=== PATIENT | female | born 1945 | race Caucasian/White ===

== ENCOUNTER → 2023-08-18 10:10 | Outpatient (BNVA) | payer MEDICARE, OTHER, SELFPAY | PROVIDERS: PCP Family Medicine; Referring Provider Nurse Practitioner; Visit Provider Internal Medicine | DX: E04.1 Nontoxic single thyroid nodule (principal); E04.2 Nontoxic multinodular goiter; R94.6 Abnormal results of thyroid function studies; C73 Malignant neoplasm of thyroid gland | CPT/HCPCS: 36415; 84439; 84443; 84480; 99204 ==

== ENCOUNTER → 2023-09-10 11:58 | Outpatient (BNVA) | payer MEDICARE, BC, SELFPAY | PROVIDERS: PCP Family Medicine; Visit Provider Internal Medicine | DX: E04.1 Nontoxic single thyroid nodule (principal); R94.6 Abnormal results of thyroid function studies; E04.2 Nontoxic multinodular goiter; C73 Malignant neoplasm of thyroid gland; M81.0 Age-related osteoporosis without current pathological fracture; Z79.890 Hormone replacement therapy | CPT/HCPCS: 36415; 84439; 99214 ==

== ENCOUNTER → 2023-12-01 11:49 | Outpatient (BNVA) | payer MEDICARE, OTHER, SELFPAY | PROVIDERS: PCP Family Medicine; Visit Provider Internal Medicine | DX: E04.1 Nontoxic single thyroid nodule (principal); R94.6 Abnormal results of thyroid function studies; E04.2 Nontoxic multinodular goiter; C73 Malignant neoplasm of thyroid gland; M81.0 Age-related osteoporosis without current pathological fracture | CPT/HCPCS: 36415; 82306; 82310; 83735; 83970; 84439; 84443 ==

== ENCOUNTER → 2024-01-26 09:37 | Outpatient (BNVA) | payer MEDICARE, OTHER, SELFPAY | PROVIDERS: PCP Family Medicine; Visit Provider Internal Medicine | DX: R94.6 Abnormal results of thyroid function studies (principal); C73 Malignant neoplasm of thyroid gland; E04.1 Nontoxic single thyroid nodule; E11.9 Type 2 diabetes mellitus without complications; E04.2 Nontoxic multinodular goiter; M81.0 Age-related osteoporosis without current pathological fracture; E23.6 Other disorders of pituitary gland; E03.9 Hypothyroidism, unspecified; Z79.890 Hormone replacement therapy | CPT/HCPCS: 36415; 82310; 83970; 84439; 84443; 84480; 99214 ==

== ENCOUNTER 2024-03-03 09:11 | Outpatient (CLI) | payer MEDICARE, OTHER, SELFPAY ==
[2024-03-03 10:10] LABS: Alanine Aminotransferase 13 U/L (0-33); Albumin Level 4.1 g/dL (3.5-5.2); Alkaline Phosphatase 59 U/L (35-105); Anion Gap 12.9 (5-19); Aspartate Amino Transferase 18 U/L (0-32); Blood Urea Nitrogen 18 mg/dL (8-23); Calcium 8.8 mg/dL (8.5-10.5); Carbon Dioxide 27 mmol/L (22-29); Chloride 98 mmol/L (98-107); Chol HDL Ratio 2.19 mg/dL (0.0-4.40); Cholesterol 140 mg/dL (0-200); Cortisol Random 9.33 ug/dL (2.47-19.5); Free T4 Free Thyroxine 1.74 ng/dL (0.82-1.77); Globulin 3.2 g/dL (1.3-4.6); Glucose 83 mg/dL (65-115); HDL Cholesterol 64 mg/dL (60-100); LDL Cholesterol Calculated 61 mg/dL (50-129); LDL HDL Ratio 0.95 RATIO (0.00-3.22); Osmolality Calculated 279 mOsm/kg (285-295); Potassium 3.9 mmol/L (3.5-5.1); Sodium 134 mmol/L (136-145); Thyroid Stimulating Hormone 3.41 uIU/mL (0.27-4.20); Total Bilirubin 0.4 mg/dL (0.15-1.2); Total Protein 7.3 g/dL (6.6-8.7); Triglycerides 73 mg/dL (0-150)
[2024-03-03 10:17] LABS: Estmated Average Glucose 120; Hemoglobin A1C 5.8 % (4.0-6.0)
[2024-03-03 10:29] LABS: Creatinine Urine, Random 21 mg/dL (28-217); Microalbumin Random Urine 1 ug/dL (0-20)
[2024-03-03 10:30] LABS: Microalbum Creatinine Ratio Ur 48 mg/dL (0-20)
[2024-03-14 14:00] LABS: IGF1 LC/MS 103 ng/mL (34-246)
== END 2024-03-03 09:12 | disposition home or self-care (01) ==
LOC: LAB 09:13
PROVIDERS: PCP Family Medicine; Visit Provider Internal Medicine
DX: E04.1 Nontoxic single thyroid nodule (principal); C73 Malignant neoplasm of thyroid gland; E11.9 Type 2 diabetes mellitus without complications; E04.2 Nontoxic multinodular goiter; E03.9 Hypothyroidism, unspecified; M81.0 Age-related osteoporosis without current pathological fracture; E23.6 Other disorders of pituitary gland; Z79.890 Hormone replacement therapy
CPT/HCPCS: 36415; 80053; 80061; 82044; 82533; 83036; 84305; 84439; 84443; 99214

== ENCOUNTER 2024-05-24 08:33 | Outpatient (CLI) | payer MEDICARE, OTHER, SELFPAY ==
[2024-05-24 09:32] LABS: Alanine Aminotransferase 16 U/L (0-33); Albumin Level 4.1 g/dL (3.5-5.2); Alkaline Phosphatase 58 U/L (35-105); Aspartate Amino Transferase 20 U/L (0-32); Chol HDL Ratio 2.22 mg/dL (0.0-4.40); Cholesterol 140 mg/dL (0-200); Globulin 3.2 g/dL (1.3-4.6); HDL Cholesterol 63 mg/dL (60-100); LDL Cholesterol Calculated 57 mg/dL (50-129); Total Bilirubin 0.3 mg/dL (0.15-1.2); Total Protein 7.3 g/dL (6.6-8.7); Triglycerides 98 mg/dL (0-150)
[2024-05-24 09:37] LABS: Free T4 Free Thyroxine 1.98 ng/dL (0.82-1.77); Thyroid Stimulating Hormone 1.56 uIU/mL (0.27-4.20)
[2024-05-26 09:14] LABS: Thyroglobulin AB <1 IU/mL (< or = 1)
== END 2024-05-24 08:34 | disposition home or self-care (01) ==
LOC: LAB 08:34
PROVIDERS: PCP Family Medicine; Visit Provider Internal Medicine
DX: E03.9 Hypothyroidism, unspecified (principal); E04.2 Nontoxic multinodular goiter; C73 Malignant neoplasm of thyroid gland
CPT/HCPCS: 36415; 80061; 80076; 84432; 84439; 84443; 86800

== ENCOUNTER 2024-11-23 08:49 | Outpatient (CLI) | payer MEDICARE, OTHER, SELFPAY ==
[2024-11-23 09:56] LABS: Alanine Aminotransferase 14 U/L (0-33); Albumin Level 4.3 g/dL (3.5-5.2); Alkaline Phosphatase 56 U/L (35-105); Anion Gap 13.8 (5-19); Aspartate Amino Transferase 19 U/L (0-32); Blood Urea Nitrogen 20 mg/dL (8-23); Calcium 9.2 mg/dL (8.5-10.5); Carbon Dioxide 28 mmol/L (22-29); Chloride 97 mmol/L (98-107); Chol HDL Ratio 2.28 mg/dL (0.0-4.40); Cholesterol 155 mg/dL (0-200); Globulin 3.1 g/dL (1.3-4.6); Glucose 72 mg/dL (65-115); HDL Cholesterol 68 mg/dL (60-100); LDL Cholesterol Calculated 72 mg/dL (50-129); LDL HDL Ratio 1.06 RATIO (0.00-3.22); Osmolality Calculated 281 mOsm/kg (285-295); Potassium 3.8 mmol/L (3.5-5.1); Sodium 135 mmol/L (136-145); Thyroid Stimulating Hormone 10.28 uIU/mL (0.27-4.20); Total Bilirubin 0.4 mg/dL (0.15-1.2); Total Protein 7.4 g/dL (6.6-8.7); Triglycerides 75 mg/dL (0-150)
== END 2024-11-23 08:50 | disposition home or self-care (01) ==
LOC: LAB 08:53
PROVIDERS: PCP Family Medicine; Visit Provider Internal Medicine
DX: E04.2 Nontoxic multinodular goiter (principal); C73 Malignant neoplasm of thyroid gland; E03.9 Hypothyroidism, unspecified
CPT/HCPCS: 36415; 80053; 80061; 84432; 84443; 86800

== ENCOUNTER → 2025-03-23 10:41 | Outpatient (BNVA) | payer MEDICARE, OTHER, SELFPAY | PROVIDERS: PCP Family Medicine; Visit Provider Internal Medicine | DX: E03.9 Hypothyroidism, unspecified (principal); E04.2 Nontoxic multinodular goiter; E23.6 Other disorders of pituitary gland; E78.2 Mixed hyperlipidemia; C73 Malignant neoplasm of thyroid gland | CPT/HCPCS: 99214 ==

== ENCOUNTER → 2025-07-26 10:44 | Outpatient (BNVA) | payer MEDICARE, OTHER, SELFPAY | PROVIDERS: PCP Family Medicine; Visit Provider Internal Medicine | DX: E04.2 Nontoxic multinodular goiter (principal); C73 Malignant neoplasm of thyroid gland; M81.0 Age-related osteoporosis without current pathological fracture; E23.6 Other disorders of pituitary gland; E03.9 Hypothyroidism, unspecified; K59.00 Constipation, unspecified; M79.10 Myalgia, unspecified site; E78.2 Mixed hyperlipidemia | CPT/HCPCS: 99214 ==